=== PATIENT | male | born 1955 | race Caucasian/White ===

== ENCOUNTER 2019-06-13 10:55 | Emergency (ER) | payer MEDICARE ==
[~2019-06-13] VITALS: Ht 172.7 cm; Wt 116.6 kg
[~2019-06-13 10:55] MED LIST: ACETAMINOPHEN325 MG PO; ACETYLCYSTEINE PO; BAYER CHEWABLE81 MG PO; CLEOCIN HCL300 MG PO; COUMADIN10 MG PO; HYDROCODON-ACE1 EAC7 PO; LEVAQUIN250 MG PO; LISINOPRIL5 MG PO; LOVENOX SQ; LOVENOX120 MG/0.8 SQ; MIRALAX17 GM PO; MUCOMYST 2800 MG/4 M OR; NORVASC5 MG PO; PLAVIX75 MG PO; PRILOSEC10 MG PO; PRINIVIL20 MG PO; TESTOSTERON200 MG/ML IM; VANCOMYCIN H1 G/VIA1 PO; ZEBETA10 MG PO
[2019-06-13 10:57] VITALS: Ht 172.7 cm; Wt 116.6 kg
[2019-06-13] MEDS ORDERED: ELIQUIS5 MG (10:59)
[2019-06-13] MEDS ORDERED: ROCALTROL0.25 MCG (10:59)
[2019-06-13 11:26] LABS: BASOPHILS 0.2 % (0-2); EOSINOPHILS 2.7 % (0-7); HEMATOCRIT 44.4 % (42.0-54.0); HEMOGLOBIN 14.6 g/dL (13.5-17.5); IMMATURE GRANULOCYTES 1.1 % (0-5); LYMPHOCYTES 14.4 % (15-50); MCH 31.2 pg (26.0-34.0); MCHC 32.9 g/dL (31.0-37.0); MCV 94.9 fL (80.0-100.0); MEAN PLATELET VOLUME 10.3 fL (7.4-10.4); MONOCYTES 6.6 % (2-11); PLATELET COUNT 153 10x3/uL (130-400); RBC 4.68 10x6/uL (4.20-6.10); RDW 14.6 % (11.5-14.5); WBC 10.9 10x3/uL (4.8-10.8)
[2019-06-13 11:42] LABS: APTT 25.1 SECONDS (22.8-39.4); INR 1.17 (0.85-1.17); PROTIME 14.4 SECONDS (11.6-15.0)
[2019-06-13 11:52] LABS: ALBUMIN 3.3 g/dL (3.4-5.0); ALKALINE PHOSPHATASE 67 U/L (46-116); ALT (SGPT) 16 U/L (10-68); BILIRUBIN - TOTAL 0.58 mg/dL (0.2-1.3); CALC OSMOLALITY 293 mosm/kg (275-300); CALCIUM 11.4 mg/dL (8.5-10.1); CARBON DIOXIDE 21.3 mmol/L (21.0-32.0); CHLORIDE - SERUM 109 mmol/L (98-107); CREATININE - SERUM 6.7 mg/dL (0.6-1.3); GLUCOSE 93 mg/dL (74-106); POTASSIUM - SERUM 4.9 mmol/L (3.5-5.1); PROTEIN - SERUM 6.7 g/dL (6.4-8.2); SODIUM 140 mmol/L (136-145); UREA NITROGEN 54 mg/dL (7-18); eGFR NON AFRICAN AMERICAN 9 mL/min (90-120)
[2019-06-13 12:03] LABS: CKMB 2.1 U/L (0.0-3.6); CREATINE KINASE 102 UL (21-232); MAGNESIUM - SERUM 1.6 mg/dL (1.8-2.4); THYROID STIMULATING HORMONE 1.78 uIU/mL (0.36-3.74)
[2019-06-13 12:04] LABS: TROPONIN-I 0.075 ng/mL (0.000-0.060)
[2019-06-13 12:48] VITALS: BP 165/80
== END 2019-06-13 12:48 | disposition other institution (70) ==
LOC: D.ER 10:55
PROVIDERS: Family Medicine
DX: R29.810 Facial weakness (principal); R74.8 Abnormal levels of other serum enzymes; N18.9 Chronic kidney disease, unspecified; E03.9 Hypothyroidism, unspecified

== ENCOUNTER → 2019-07-29 15:19 | Outpatient (CLI) | payer MEDICARE ==
[2019-06-13 10:57] VITALS: BMI 41.1
[~2019-07-29 15:19] MED LIST changes: +CIALIS10 MG PO; +DEMADEX20 MG PO; +ELIQUIS5 MG; +FUROSEMIDE40 MG PO; +K-DUR20 MEQ PO; +LASIX40 MG PO; +LIPITOR40 MG PO; +METOPROLOL TART25 MG PO; +PROTONIX40 MG PO; +RENAGEL800 MG PO; +ROCALTROL0.25 MCG; +SODIUM BICARBO650 MG PO; +TESTOST CYP 200MG/ML IM
[2019-07-29 15:55] LABS: ANION GAP 16.1 mmol/L (8-16); CALCIUM 10.2 mg/dL (8.5-10.1); CARBON DIOXIDE 21.1 mmol/L (21.0-32.0); POTASSIUM - SERUM 5.2 mmol/L (3.5-5.1)
== END | disposition home or self-care (01) ==
LOC: D.LABREF 15:19
PROVIDERS: ATTEND Nurse Practitioner Adult Health
DX: I25.10 Atherosclerotic heart disease of native coronary artery without angina pectoris (principal); R60.0 Localized edema

== ENCOUNTER 2019-08-01 09:39 | Inpatient (IN) | payer MEDICARE ==
[~2019-08-01] VITALS: Ht 172.7 cm; Wt 120.5 kg
[~2019-08-01 09:39] MED LIST changes: -CIALIS10 MG PO; -DEMADEX20 MG PO; -FUROSEMIDE40 MG PO; -K-DUR20 MEQ PO; -LASIX40 MG PO; -LIPITOR40 MG PO; -METOPROLOL TART25 MG PO; -PROTONIX40 MG PO; -RENAGEL800 MG PO; -SODIUM BICARBO650 MG PO; -TESTOST CYP 200MG/ML IM
--- NOTE | 2019-08-01 10:12 | NUR ---
TRANSFER FROM ADMISSIONS BY W/Mamadou MORALES TO ROOM. AT BS. WILL CONT. PLAN OF CARE.
[2019-08-01 10:22] VITALS: BP 102/66; BMI 41.9
--- NOTE | 2019-08-01 10:56 | NUR ---
SPOKE WITH PT'S AND SHE STATES SHE IS GOING HOME TO GET PT'S HOME MEDS SO WE CAN DO MED REC.
[2019-08-01 11:03] VITALS: BP 102/66
[2019-08-01] MEDS ORDERED: PROTONIX40 MG PO (13:10)
[2019-08-01] MEDS ORDERED: PLAVIX75 MG PO (13:10)
[2019-08-01] MEDS ORDERED: SODIUM BICARBO650 MG PO (13:12)
[2019-08-01] MEDS ORDERED: LISINOPRIL5 MG PO (13:13)
[2019-08-01] MEDS ORDERED: BAYER CHEWABLE81 MG PO (13:14)
[2019-08-01] MEDS ORDERED: METOPROLOL TART25 MG PO (13:14)
[2019-08-01] MEDS ORDERED: LIPITOR40 MG PO (13:17)
[2019-08-01] MEDS ORDERED: CIALIS10 MG PO (13:18)
[2019-08-01] MEDS ORDERED: TESTOST CYP 200MG/ML IM (13:22)
[2019-08-01] MEDS ORDERED: FUROSEMIDE40 MG PO (13:24)
[2019-08-01] MEDS ORDERED: LASIX40 MG PO (13:25)
[2019-08-01] MEDS ORDERED: K-DUR20 MEQ PO (13:26)
--- NOTE | 2019-08-01 14:08 | NUR ---
LEFT FA 22G IV INSERTED X1 ATTEMPT.
--- NOTE | 2019-08-01 14:35 | NUR ---
PT WANTS TO BE DNR.
--- NOTE | 2019-08-01 14:56 | NUR ---
WAITING ON SOLE STAINER. UA COLLECTED AND TAKE TO LAB.
--- NOTE | 2019-08-01 14:56 | NUR ---
PT WANTS TO BE MADE DNR. CALLED AND SPOKE WITH SERAFIN JACOBS SHE STATES WHEN DR. BIRD ROUNDS TO HAVE HIM SIGN DNR FORM.
[2019-08-01 15:04] LABS: APPEARANCE CLEAR (CLEAR); BILIRUBIN NEGATIVE (NEGATIVE); COLOR YELLOW (YELLOW); GLUCOSE 50 mg/dL (NEGATIVE); KETONE NEGATIVE (NEGATIVE); NITRITE NEGATIVE (NEGATIVE); PROTEIN TRACE mg/dL (NEGATIVE); UROBILINOGEN NORMAL (NORMAL)
[2019-08-01 15:06] LABS: CREATININE - URINE 41.4 mg/dL (30-125); PRO/CRE RATIO URINE 1.3 mg/g; PROTEIN - URINE 53.6 mg/dL (0.0-11.9)
[2019-08-01 15:14] LABS: BASOPHILS 0.3 % (0-2); EOSINOPHILS 6.4 % (0-7); HEMATOCRIT 37.5 % (42.0-54.0); HEMOGLOBIN 12.1 g/dL (13.5-17.5); IMMATURE GRANULOCYTES 2.1 % (0-5); LYMPHOCYTES 17.7 % (15-50); MCH 30.2 pg (26.0-34.0); MCHC 32.3 g/dL (31.0-37.0); MCV 93.5 fL (80.0-100.0); MEAN PLATELET VOLUME 10.3 fL (7.4-10.4); MONOCYTES 8.6 % (2-11); NEUTROPHILS 64.9 % (40-80); PLATELET COUNT 148 10x3/uL (130-400); RBC 4.01 10x6/uL (4.20-6.10); RDW 14.3 % (11.5-14.5); WBC 8.6 10x3/uL (4.8-10.8)
[2019-08-01 15:27] LABS: ALBUMIN 2.8 g/dL (3.4-5.0); ANION GAP 16.9 mmol/L (8-16); BILIRUBIN - TOTAL 0.2 mg/dL (0.2-1.3); CALCIUM 9.9 mg/dL (8.5-10.1); CARBON DIOXIDE 19.4 mmol/L (21.0-32.0); CREATININE - SERUM 7.1 mg/dL (0.6-1.3); POTASSIUM - SERUM 5.3 mmol/L (3.5-5.1)
[2019-08-01 15:37] VITALS: BP 150/81
--- NOTE | 2019-08-01 16:03 | NUR ---
DNR FORM SIGNED BY DR. BIRD.
[2019-08-01 16:44] LABS: % SATURATION 20 % (15-55); IRON 56 ug/dl (35-150); TOTAL IRON BIND CAPACITY 272 ug/dl (260-445); UNSAT IRON BIND CAPACITY 216 ug/dl (150-375)
[2019-08-01 20:00] VITALS: BP 113/80
[2019-08-02] VITALS: BP 136/75
[2019-08-02 05:51] LABS: BASOPHILS 0.2 % (0-2); EOSINOPHILS 6.8 % (0-7); HEMATOCRIT 38.4 % (42.0-54.0); HEMOGLOBIN 12.3 g/dL (13.5-17.5); IMMATURE GRANULOCYTES 2.1 % (0-5); MCH 30.1 pg (26.0-34.0); MCV 93.9 fL (80.0-100.0); MEAN PLATELET VOLUME 11.5 fL (7.4-10.4); NEUTROPHILS 61.9 % (40-80); PLATELET COUNT 152 10x3/uL (130-400); RBC 4.09 10x6/uL (4.20-6.10); RDW 14.5 % (11.5-14.5)
[2019-08-02 06:36] LABS: % SATURATION 19 % (15-55); IRON 55 ug/dl (35-150); TOTAL IRON BIND CAPACITY 282 ug/dl (260-445); UNSAT IRON BIND CAPACITY 227 ug/dl (150-375)
[2019-08-02 06:40] LABS: ALBUMIN 2.8 g/dL (3.4-5.0); ANION GAP 18.5 mmol/L (8-16); BILIRUBIN - TOTAL 0.2 mg/dL (0.2-1.3); CALCIUM 10.4 mg/dL (8.5-10.1); CARBON DIOXIDE 18.6 mmol/L (21.0-32.0); CREATININE - SERUM 7.6 mg/dL (0.6-1.3); PHOSPHOROUS 6.3 mg/dL (2.5-4.9); POTASSIUM - SERUM 5.1 mmol/L (3.5-5.1)
--- NOTE | 2019-08-02 07:17 | NUR ---
REPORT RECEIVED. WILL CONTINUE WITH POC. PT CURRENTLY LYING SUPINE. CALL LIGHT W/I REACH. PT IS RESTING AT THIS TIME. NO S/S OF DISTRESS NOTED. RR EVEN AND UNLABORED ON RA. L.FOR PIV IS SALINE LOCKED. PT DENIES ANY NEEDS. WILL CTM.
[2019-08-02 08:00] VITALS: BP 117/77
--- NOTE | 2019-08-02 10:49 | NUR ---
I have reviewed this patient and I concur with the Shift Assessment completed by the Licensed Practical Nurse today this shift.
[2019-08-02 12:24] VITALS: BP 124/73
--- NOTE | 2019-08-02 13:38 | EC ---
PATIENT:FRIEDA ANNA JR DATE OF SERVICE: 08/01/19 SEX: M MEDICAL RECORD: [id number] DATE OF : [birth year] LOCATION:D.M2 D.212 AGE OF PATIENT: 64 ADMISSION DATE: 08/01/19 REFERRING PHYSICIAN: INTERPRETING PHYSICIAN: ANN DIETRICH MD ECHOCARDIOGRAM REPORT ECHO CHARGES 4 ECHO COMPLETE Date: 08/01/19 CLINICAL DIAGNOSIS: CHF ECHOCARDIOGRAPHIC MEASUREMENTS (adult normal given) AC root (d.<3.7cm) 2.8 cm LV Septum d (<1.2 cm> 1.4 cm Valve Excursion 1.9 cm LV Septum (systole) 1.9 cm Left Atria (s.<4.0cm> 3.7 cm LVPW d(<1.2cm) 1.4 cm RV (d.<2.3cm) 3.0 cm LVPW (sytole) 1.5 cm LV diastole(<5.6CM) 5.7 cm MV E-F(>70mm/sec) cm LV systole 4.3 cm LVOT Diameter 2.1 cm MV exc.(>10mm) cm Est.ejection fraction (50-75%) % DOPPLER: LVIT cm/sec A 115 cm/sec E 65 cm/sec LA cm/sec RVSP 18.1 mmHg LVOT 96 cm/sec AOP1/2T m/s Asc. Ao 135 cm/sec RVOT 69 cm/sec RA cm/sec PA 66 cm/sec AV Gradient Peak 7.3 mmHg AV Mean 3.9 mmHg AV Area 2.5 cm MV Gradient Peak 7.9 mmHg MV Mean 3.5 mmHg MV Area cm COMMENTS: Non Morse Intercept Technician: Mabel VERDERAYRAY MEDINA Manager Pest: 1 Dr. Dietrich TAPE# PACS Pericardial Effusion N DATE OF SERVICE: 08/01/2019 PROCEDURE: Echocardiogram. FINDINGS: 1. Left ventricular chamber size is within normal limits. Left ventricular systolic function is normal at 55% to 60%. 2. Left atrium is within normal limits. Right atrium and right ventricular chamber sizes are mildly dilated. 3. Valvular structures have normal structure and motion. ECHOCARDIOGRAM REPORT [id number] FRIEDA ANNA JR 4. Doppler interrogation reveals mild aortic insufficiency, trace mitral regurgitation, trace tricuspid regurgitation, no other valvular insufficiency or stenosis. Pulmonary systolic pressure is estimated at 18 mmHg. 5. No evidence of pericardial effusion or left ventricular thrombus. TRANSINT:[id number] Voice Confirmation ID: [id number] DOCUMENT ID: [id number] ANN DIETRICH MD at 1338 CC: [id number] DICTATION DATE: 08/01/19 1653 WAFER CUTTER: 08/02/19 0127 ADM IN [facility] [address] [place] [address]
--- NOTE | 2019-08-02 13:38 | CN ---
PATIENT NAME:FRIEDA ANNA JR MEDICAL RECORD: [id number] : 51 LOCATION:D. D.2129 ADMIT DATE: 08/01/19 ACCOUNT: [id number] CONSULTING PHYSICIAN: ANN ISAAC MD REFERRING PHYSICIAN: ENID BIRD MD DATE OF CONSULTATION: 08/01/2019 DIAGNOSES: 1. Edema. 2. Short of breath, dyspnea on exertion. 3. Coronary artery disease. 4. Previous percutaneous transluminal coronary angioplasty stent. 5. Hypertension. 6. Hyperlipidemia. 7. Renal insufficiency. 8. Insulin-dependent diabetes. HISTORY OF PRESENT ILLNESS: Mr. Anna presents with 1-week history of fluid retention, causing lower extremity edema and shortness of breath. No chest pain. No chest discomfort. He was found to have a creatinine of 7.0. He does have a history of coronary artery disease, PTCA stent in the past, but no anginal symptomatology at this time. PHYSICAL EXAMINATION: CONSTITUTIONAL/GENERAL APPEARANCE: Well nourished, well developed, appears stated age. EYES: Lids and conjunctivae noninjected. No discharge. No pallor. ENT: Lips within normal limit. No cyanosis. No pallor. NECK: Carotid arteries, bilateral normal upstroke. No bruits. No thrills. No jugular venous pressure or distention. CERVICAL LYMPH NODES: Nontender. Nonenlarged. THYROID: Not enlarged. No nodules. CARDIOVASCULAR: Precordial exam, nondisplaced. No heaves or pericardial thrills. Rate and rhythm, regular. Heart sounds, normal S1, normal S2. No S3, no gallop, no rub. Systolic murmur, not heard. Diastolic murmur, not heard. RESPIRATORY: Respiratory effort, unlabored. Normal curvature. No thoracic deformity. No chest wall tenderness. Percussion, resonant. Auscultation, clear. No wheezes, no rales, no rhonchi. ABDOMEN: Soft, nondistended, nontender. No abdominal pain, no vomiting and normal appetite. MUSCULOSKELETAL: No joint tenderness, normal gait, normal tone. SKIN: Warm and dry. OVERALL IMPRESSION: Lower extremity edema, fluid retention, shortness of breath, dyspnea on exertion, most likely all this is secondary to the renal insufficiency. We will get an echocardiogram. No other cardiac workup or treatment should be necessary. TRANSINT:[id number] Voice Confirmation ID: [id number] DOCUMENT ID: [id number] CONSULT REPORT [id number] FRIEDA ANNA JR, JEFFREY MD at 1338 CC: [id number] DICTATION DATE: 08/01/19 1214 WEBSITE PROJECT MANAGER: 08/01/19 1411 ADM IN [facility] [id number] [place] [address]
[2019-08-02 14:43] VITALS: Ht 172.7 cm; Wt 120.5 kg
--- NOTE | 2019-08-02 15:39 | NUR ---
PERFORMED POST VOID RESIDUAL SCAN AND RECORDERED 189ML TOTAL. NOTIFIED WHO STATED THAT WOULD BE OKAY. WILL CTM.
[2019-08-02 16:19] VITALS: BP 142/80
--- NOTE | 2019-08-02 19:23 | NUR ---
REPORT RECIEVED AND ROUNDING COMPLETE. PATIENT LAYING IN BED WATCHING TV. PATIENT HAS A LEFT FOREARM PIV THAT IS SALINE LOCKED WITH NO S/SX OF INFECTION OR INFILTRATION. PATIENT IS SHOWING NO S/SX OF DISTRESS AT THIS TIME. PATIENT STATES HE HAS NO NEEDS AT THIS TIME. CALL LIGHT WITHIN DANY AND BED IN LOWEST LOCKED POSITION.
[2019-08-02 20:15] VITALS: BP 136/82
[2019-08-03 00:02] VITALS: BP 149/79
[2019-08-03 04:00] VITALS: BP 133/72
--- NOTE | 2019-08-03 04:32 | NUR ---
I have reviewed this patient and I concur with the Shift Assessment completed by the Licensed Practical Nurse today this shift.
[2019-08-03 06:40] LABS: ANION GAP 18.4 mmol/L (8-16); CALCIUM 10.3 mg/dL (8.5-10.1); CARBON DIOXIDE 19.1 mmol/L (21.0-32.0); CREATININE - SERUM 7.7 mg/dL (0.6-1.3); POTASSIUM - SERUM 5.5 mmol/L (3.5-5.1); URIC ACID 9.2 mg/dL (2.6-7.2)
[2019-08-03 06:46] LABS: BASOPHILS 0.3 % (0-2); EOSINOPHILS 4.3 % (0-7); HEMATOCRIT 39.6 % (42.0-54.0); HEMOGLOBIN 12.8 g/dL (13.5-17.5); IMMATURE GRANULOCYTES 1.5 % (0-5); LYMPHOCYTES 10.5 % (15-50); MCH 30.2 pg (26.0-34.0); MCHC 32.3 g/dL (31.0-37.0); MCV 93.4 fL (80.0-100.0); MEAN PLATELET VOLUME 11.4 fL (7.4-10.4); MONOCYTES 10.9 % (2-11); NEUTROPHILS 72.5 % (40-80); PLATELET COUNT 147 10x3/uL (130-400); RBC 4.24 10x6/uL (4.20-6.10); RDW 14.6 % (11.5-14.5); WBC 11.1 10x3/uL (4.8-10.8)
--- NOTE | 2019-08-03 07:15 | NUR ---
PT LAYING IN BED. EYES CLSOED. CHEST RISING AND FALLING. ROOM AIR. BED LOW. CL IN REACH. WILL CONTINUE TO MONITOR.
[2019-08-03 08:45] VITALS: BP 140/82
[2019-08-03 11:10] LABS: HEPATITIS C ANTIBODY <0.1 S/CO RAT (0.0-0.9)
[2019-08-03 11:45] VITALS: BP 138/77
--- NOTE | 2019-08-03 12:15 | NUR ---
I have reviewed this patient and I concur with the Shift Assessment completed by the Licensed Practical Nurse today this shift.
[2019-08-03 13:10] LABS: PSA - % FREE 47.5 % (()); PSA - FREE 1.52 ng/mL; PSA - TOTAL 3.2 ng/mL (0.0-4.0)
[2019-08-03 15:10] LABS: SPE - A/G RATIO 1.1 (0.7-1.7); SPE - ALBUMIN 3.2 g/dL (2.9-4.4); SPE - ALPHA-1 GLOBULIN 0.2 g/dL (0.0-0.4); SPE - ALPHA-2 GLOBULIN 0.7 g/dL (0.4-1.0); SPE - BETA GLOBULIN 0.9 g/dL (0.7-1.3); SPE - M-SPIKE Not Observed g/dL (Not Observed)
--- NOTE | 2019-08-03 16:00 | NUR ---
PT WANTING TO KNOW ABOUT WHEN HE WILL GET DISCHARGE I STATED TO PT THAT IS UP TO DR. BIRD AND WHEN HE ROUNDS HE CAN DISCUSS THAT WIHTHIM. PT VERBALIZED UNDERSTANDING.
--- NOTE | 2019-08-03 16:10 | MORECARE ---
CASE MANAGEMENT DISCHARGE SUMMARY PATIENT: FRIEDA ANNA JR UNIT: [id number] ADM DATE: 08/01/19 AGE: 64 : 53 SEX: M ROOM/BED: D.2129 AUTHOR: DENIS VELASCO PHYSICIAN: REFERRING PHYSICIAN: ENID BIRD MD DATE OF SERVICE: 08/03/19 Discharge Plan Patient Name: FRIEDA ANNA Facility: [facility]:[place] : 1955 Planned Disposition: Home Health Service Anticipated Discharge Date: Discharge Date: Expected LOS: Initial Reviewer: [email or web address] Initial Review Date: 08/03/2019 Generated: 08/03/19 5:10 pm Patient Name: FRIEDA ANNA Page [id number] at 1610 All edits/amendments must be made on the electronic document DICTATION DATE: 08/03/19 1610 INSTRUMENTAL MUSIC TEACHER: PHILOMENA 08/03/19 1610 RPT#: [id number] DC DATE: STATUS: ADM IN [facility] [address] [place] [address] END OF REPORT
--- NOTE | 2019-08-03 16:18 | MORECARE ---
CASE MANAGEMENT DISCHARGE SUMMARY PATIENT: FRIEDA ANNA JR UNIT: [id number] ADM DATE: 08/01/19 AGE: 64 : 53 SEX: M ROOM/BED: D.6983 AUTHOR: DENIS VELASCO PHYSICIAN: REFERRING PHYSICIAN: ENID BIRD MD DATE OF SERVICE: 08/03/19 Discharge Plan Patient Name: FRIEDA ANNA Facility: [facility]:[place] : 1955 Planned Disposition: Home Health Service Anticipated Discharge Date: Discharge Date: Expected LOS: Initial Reviewer: [email or web address] Initial Review Date: 08/03/2019 Generated: 08/03/19 5:18 pm Comments DCP- Discharge Planning Updated by [email or web address]: Kassandra Lea on 08/03/19 3:[address] Patient Name: FRIEDA ANNA Admission Status: Elective Accout number: [id number] Admission Date: 08-01-2019 : 1955 Admission Diagnosis: Attending: ENID BIRD Current LOS: 2 Anticipated DC Date: Planned Disposition: Home Health Service Primary Insurance: MEDICARE A & B Discharge Planning Comments: CM MET WITH PATIENT ABOUT DC PLANNING/NEEDS. STATES PLANS TO DC TO HOME AND RESUME HH WITH [facility]. NATHALY WILL POOL TECHNICIAN AT TIME OF DISCHARGE. HE STATES HE DOES NOT WANT DIALYSIS, SAID HE HAS BEEN OFF OF IT FOR 5 YEARS AND IS NOT GOING BACK. CM WILL FOLLOW AND ASSIST. Netezza Developer: Kassandra Lea Last DP export: 08/03/19 3:10 p Patient Name: FRIEDA ANNA Page [phone] at 1618 All edits/amendments must be made on the electronic document DICTATION DATE: 08/03/191617 MANAGER PORT: PHILOMENA 08/03/191617 RPT#: [id number] DC DATE: STATUS: ADM IN [facility] [address] [place] [address] END OF REPORT
[2019-08-03 16:37] VITALS: BP 109/75
--- NOTE | 2019-08-03 19:00 | NUR ---
REPORT RECEIVED, WILL CONTINUE POC. PATIENT A/OX4, UP AD LOUISE. NO S/S OF DISTRESS OBSERVED, RR EVEN AND UNLABORED ON ROOM AIR. IV TO LT FA SL, PATENT, DRSG C/D/I. PATIENT DENIES NEEDS AT THIS TIME. CL IN REACH, BED LOCKED AND LOWERED. WILL CTM.
[2019-08-03 20:00] VITALS: BP 114/81
[2019-08-04] VITALS: BP 120/68
--- NOTE | 2019-08-04 01:44 | NUR ---
I have reviewed this patient and I concur with the Shift Assessment completed by the Licensed Practical Nurse today this shift.
[2019-08-04 05:13] LABS: BASOPHILS 0.4 % (0-2); EOSINOPHILS 4.5 % (0-7); HEMATOCRIT 38.9 % (42.0-54.0); HEMOGLOBIN 12.8 g/dL (13.5-17.5); IMMATURE GRANULOCYTES 1.2 % (0-5); LYMPHOCYTES 16.2 % (15-50); MCH 30.4 pg (26.0-34.0); MCHC 32.9 g/dL (31.0-37.0); MCV 92.4 fL (80.0-100.0); MEAN PLATELET VOLUME 10.9 fL (7.4-10.4); MONOCYTES 9.3 % (2-11); NEUTROPHILS 68.4 % (40-80); PLATELET COUNT 152 10x3/uL (130-400); RBC 4.21 10x6/uL (4.20-6.10); RDW 14.4 % (11.5-14.5); WBC 10.8 10x3/uL (4.8-10.8)
[2019-08-04 05:43] LABS: ANION GAP 17.1 mmol/L (8-16); CALCIUM 9.9 mg/dL (8.5-10.1); CARBON DIOXIDE 21.5 mmol/L (21.0-32.0)
[2019-08-04 05:53] LABS: POTASSIUM - SERUM 4.6 mmol/L (3.5-5.1)
--- NOTE | 2019-08-04 06:06 | NUR ---
ASSISTED PATIENT TO BATHROOM TO HAVE BM, PATIENT SAID IT APPIAH WHEN HE URINATES.
--- NOTE | 2019-08-04 07:18 | NUR ---
REPORT RECEIVED. WILL CONTINUE WITH POC. PT CURRENTLY LYING SEMI FOWLERS. CALL LIGHT W/I REACH. PT IS AAO AND UP AD LOUISE. RR EVEN AND UNLABORED ON RA. L.FOR PIV IS SALINE LOCKED. PT DENIES ANY NEEDS AT THIS TIME. NO S/S OF DISTRESS NOTED. WILL CTM.
[2019-08-04 08:34] VITALS: BP 131/81
[2019-08-04 12:30] VITALS: BP 133/81
[2019-08-04] MEDS ORDERED: DEMADEX20 MG PO (13:10)
[2019-08-04] MEDS ORDERED: RENAGEL800 MG PO (13:10)
--- NOTE | 2019-08-04 15:16 | NUR ---
PT DISCHARGED HOME VIA WHEELCHAIR WITH FAMILY. TELEMETRY REMOVED AND RETURNED. PT SIGNED PROPER DISCHARGE INSTRUCTIONS AND REMOVED ALL VALUALBLES FROM THE ROOM. PIV REMOVED WITH CATHETER TIP FULLY INTACT.
--- NOTE | 2019-08-04 16:55 | MORECARE ---
CASE MANAGEMENT DISCHARGE SUMMARY PATIENT: FRIEDA ANNA JR UNIT: [id number] ADM DATE: 08/01/19 AGE: 64 : 53 SEX: M ROOM/BED: D.8375 AUTHOR: DENIS VELASCO PHYSICIAN: REFERRING PHYSICIAN: ENID BIRD MD DATE OF SERVICE: 08/04/19 Discharge Plan Patient Name: FRIEDA ANNA Facility: [facility]:[place] : 1955 Planned Disposition: Home Health Service Anticipated Discharge Date: Discharge Date: 08/04/2019 Expected LOS: Initial Reviewer: [email or web address] Initial Review Date: 08/03/2019 Generated: 08/04/19 5:55 pm DCP- Discharge Planning Updated by [email or web address]: Kassandra Lea on 08/03/19 3:[address] Patient Name: FRIEDA ANNA Admission Status: Elective Accout number: [id number] Admission Date: 08-01-2019 : 1955 Admission Diagnosis: Attending: ENID BIRD Current LOS: 2 Anticipated DC Date: Planned Disposition: Home Health Service Primary Insurance: MEDICARE A & B Discharge Planning Comments: CM MET WITH PATIENT ABOUT DC PLANNING/NEEDS. STATES PLANS TO DC TO HOME AND RESUME HH WITH [facility]. NATHALY WILL CONTACT LENS MANUFACTURER AT TIME OF DISCHARGE. HE STATES HE DOES NOT WANT DIALYSIS, SAID HE HAS BEEN OFF OF IT FOR 5 YEARS AND IS NOT GOING BACK. CM WILL FOLLOW AND ASSIST. Food Cooking Machine Operator: Kassandra Lea Coverage Notice Reviewer: [email or web address] - Kassandra Lea Notice Issued Date-Time: 08/04/2019 14:44 Notice Type: IM Discharge Notice Notice Delivered To: Patient Relationship to Patient: Web Marketing Manager Name: Delivery Method: HAND - Hand Delivered Marjorie Days: Prior Verbal Notification: Recipient Understood Notice: Yes Recipient Signature: Yes Med Rec Note Co-signed by Attending: Coverage Notice Comment: Last DP export: 08/03/19 3:18 p Patient Name: FRIEDA ANNA Page [phone] at 1658 All edits/amendments must be made on the electronic document DICTATION DATE: 08/04/191654 CELL TESTER: PHILOMENA 08/04/191654 RPT#: [id number] DC DATE:08/04/19 STATUS: DIS IN [facility] [address] [place] [address] END OF REPORT
== END 2019-08-04 15:16 | disposition home health service (06) | DRG 291 ==
LOC: D.M2 09:39 → D.SDCHOLD 09:39 → D.M2 09:56
PROVIDERS: Internal Medicine; ADMIT Internal Medicine Nephrology; ATTEND Internal Medicine Nephrology
DX: I13.2 Hypertensive heart and chronic kidney disease with heart failure and with stage 5 chronic kidney disease, or end stage renal disease (principal); I50.43 Acute on chronic combined systolic (congestive) and diastolic (congestive) heart failure; F17.213 Nicotine dependence, cigarettes, with withdrawal; E87.2 Acidosis; N17.9 Acute kidney failure, unspecified; N18.5 Chronic kidney disease, stage 5; E11.22 Type 2 diabetes mellitus with diabetic chronic kidney disease; D64.9 Anemia, unspecified; E87.5 Hyperkalemia; I25.10 Atherosclerotic heart disease of native coronary artery without angina pectoris; E78.5 Hyperlipidemia, unspecified; Z66 Do not resuscitate; Z86.73 Personal history of transient ischemic attack (TIA), and cerebral infarction without residual deficits

== ENCOUNTER → 2019-08-29 16:59 | Outpatient (CLI) | payer MEDICARE ==
[2019-08-02 14:43] VITALS: BMI 40.3
[~2019-08-29 16:59] MED LIST changes: +CIALIS10 MG PO; +CIALIS2.5 MG PO; +CIPRO250 MG PO; +DEMADEX20 MG PO; +FUROSEMIDE40 MG PO; +K-DUR20 MEQ PO; +LASIX40 MG PO; +LIPITOR40 MG PO; +METOPROLOL TART25 MG PO; +PROTONIX40 MG PO; +RENAGEL800 MG PO; +SODIUM BICARBO650 MG PO; +TESTOST CYP 200MG/ML IM; +TUMS PO; +VIBRAMYCIN 100100 MG PO
== END | disposition home or self-care (01) ==
LOC: D.LABREF 16:59
PROVIDERS: ATTEND Urology
DX: R31.9 Hematuria, unspecified (principal)

== ENCOUNTER 2019-09-06 05:30 | Day surgery (SDC) | payer MEDICARE ==
[2019-09-05 14:16] LABS: BASOPHILS 0.2 % (0-2); EOSINOPHILS 3.7 % (0-7); HEMATOCRIT 41.1 % (42.0-54.0); HEMOGLOBIN 12.7 g/dL (13.5-17.5); IMMATURE GRANULOCYTES 0.6 % (0-5); LYMPHOCYTES 11.4 % (15-50); MCH 29.6 pg (26.0-34.0); MCHC 30.9 g/dL (31.0-37.0); MCV 95.8 fL (80.0-100.0); MONOCYTES 7.8 % (2-11); NEUTROPHILS 76.3 % (40-80); PLATELET COUNT 179 10x3/uL (130-400); RBC 4.29 10x6/uL (4.20-6.10); RDW 13.7 % (11.5-14.5)
[2019-09-05 14:32] LABS: ALBUMIN 3.2 g/dL (3.4-5.0); ANION GAP 11.8 mmol/L (8-16); BILIRUBIN - TOTAL 0.34 mg/dL (0.2-1.3); CALCIUM 10.5 mg/dL (8.5-10.1); CARBON DIOXIDE 24.6 mmol/L (21.0-32.0); CREATININE - SERUM 7.3 mg/dL (0.6-1.3); POTASSIUM - SERUM 4.4 mmol/L (3.5-5.1); PROTEIN - SERUM 6.5 g/dL (6.4-8.2)
[2019-09-05 14:35] LABS: INR 1.09 (0.85-1.17); PROTIME 13.6 SECONDS (11.6-15.0)
[~2019-09-06] VITALS: Ht 175.3 cm; Wt 120.2 kg
[~2019-09-06 05:30] MED LIST changes: -CIALIS2.5 MG PO; -CIPRO250 MG PO; -TUMS PO; -VIBRAMYCIN 100100 MG PO
[2019-09-06 06:35] VITALS: BP 150/86; Ht 175.3 cm; Wt 120.2 kg
--- NOTE | 2019-09-06 08:47 | OP ---
PATIENT NAME: FRIEDA ANNA JR MEDICAL RECORD: [id number] :51 LOCATION:D.OPS ADMISSION DATE: SURGEON: VINCENT PACHECO MD DATE OF OPERATION: 09/06/2019 SURGEON: Vincent Pacheco MD ANESTHESIA: TIVA by Francis Xavier CRNA. DIAGNOSES: Elevated PSA of 3.2 on 08/02/2019, bladder outlet obstruction. PROCEDURE: Cystoscopy, transrectal ultrasound, and prostate biopsy. FINDINGS: On cystoscopy, bilateral lateral lobe hyperplasia with no median lobe. Single ureteral orifices bilaterally with no bladder tumors. SPECIMENS: Prostate biopsy cores. BLOOD LOSS: Minimal. CLINICAL HISTORY: This is a 64-year-old male with renal failure, who should be having dialysis in the near future. He has elevated PSA of 3.2 on 08/02/2019 with a free PSA of 47.5%. He had a CT scan of the abdomen and pelvis, which showed normal liver, bilateral renal atrophy with cysts and an enlarged prostate. He has significant voiding symptoms including nocturia times 6-7 with hesitancy and a weak flow. He had a postvoid residual of 172 mL. He comes today for cystoscopy as well as a prostate biopsy. HE IS ALLERGIC TO SULFA AND ATIVAN. He was given Ancef keyboard action assembler to the OR. DESCRIPTION OF PROCEDURE: The patient was given IV sedation. He was then placed into lithotomy position and prepped and draped. A 17-Macedonian cystoscope with 30-degree lens was used for visualization. There are no penile urethral strictures. The lateral lobes of the prostate are obstructive. Other findings are as listed above. The bladder was then emptied through the scope and then the scope was removed entirely. We then introduced the transrectal ultrasound probe and took prostate size measurements. Prostate size was estimated at 51 grams. Sextant biopsies were then obtained with at least 3 cores from each sextant. Once all the specimens were obtained, the procedure was terminated. I will see the patient in followup next week to review the pathology results with him. TRANSINT:[id number] Voice Confirmation ID: [id number] DOCUMENT ID: [id number] VINCENT PACHECO MD at 0847 CC: [id number] DICTATION DATE: 09/06/19815 RADIOLOGIST DIAGNOSTIC: 09/06/19840 REG [facility] [address] [facility] [place] [address]
--- NOTE | 2019-09-06 09:14 | NUR ---
0900 SERVED FULL LIQUID DIET. PT COMPLAINS OF RIGHT ARM PAIN. STATES HAVING DIFFICULTY HOLDING SPOON, RIGHT ARM & HAND WRAPPED IN WARM BLANKLET. Eboni GARCIA R.N. 2190 SPOKE WITH UNIT SUPERVISER RELATED TO ARM ISSUE. PT & ADVISED THEY WILL NEED TO CONTACT PRIMARY CARE PHYSICIAM RELATED TO ARM ISSUE. STATES IT IS SOME BETTER AFTER BEING WRAPPED IN WARM BLANKET. Eboni GARCIA R.N.
--- NOTE | 2019-09-06 10:06 | NUR ---
0955 DRESSED, AWAKE & ALERT SITTING UP IN CHAIR @ BEDSIDE. D/C INFORMATION REVIEWED INCLUDING: MED REC, RTC APPT., [facility] D/C INSTRUCTIONS, POST CYSTOSCOPY & PROSTATE BIOPSY D/C INSTRUCTIONS. PT & VOICED UNDERSTANDING. PT STATES RIGHT HAND IS NOT HURTING @ THIS TIME. REMINDED [facility] IS AVAILABLE AN OPTION. STATES DR. LANG IS CALLING IN MEDICATIONS. TO PRIVATE CAR PER WHEELCHAIR BY STAFF. HOME WITH MRS. ANNA. Eboni GARCIA R.N.
== END 2019-09-06 09:55 | disposition home or self-care (01) ==
LOC: D.OPS 05:30 → D.PAN 07:30 → D.OPS 07:30 → D.PAN 10:30 → D.OPS 10:45
PROVIDERS: Anesthesiology; ATTEND Urology
DX: N32.0 Bladder-neck obstruction (principal); R97.20 Elevated prostate specific antigen [PSA]

== ENCOUNTER 2019-09-14 08:38 | Day surgery (SDC) | payer MEDICARE ==
[~2019-09-14] VITALS: Ht 175.3 cm; Wt 122.1 kg
[2019-09-14 09:13] LABS: BASOPHILS 0.2 % (0-2); HEMATOCRIT 40.3 % (42.0-54.0); HEMOGLOBIN 12.4 g/dL (13.5-17.5); IMMATURE GRANULOCYTES 0.9 % (0-5); LYMPHOCYTES 16.3 % (15-50); MCH 29.6 pg (26.0-34.0); MCHC 30.8 g/dL (31.0-37.0); MCV 96.2 fL (80.0-100.0); MEAN PLATELET VOLUME 10.7 fL (7.4-10.4); MONOCYTES 11.3 % (2-11); NEUTROPHILS 67.3 % (40-80); PLATELET COUNT 185 10x3/uL (130-400); RBC 4.19 10x6/uL (4.20-6.10); RDW 13.8 % (11.5-14.5)
[2019-09-14] MEDS ORDERED: TUMS PO (09:29)
[2019-09-14 09:31] LABS: APTT 24.7 SECONDS (22.8-39.4); INR 1.05 (0.85-1.17); PROTIME 13.2 SECONDS (11.6-15.0)
[2019-09-14 09:40] VITALS: BP 160/88; Ht 175.3 cm; Wt 122.1 kg
[2019-09-14 09:41] LABS: ANION GAP 15.1 mmol/L (8-16); CALCIUM 10.7 mg/dL (8.5-10.1); CARBON DIOXIDE 23.6 mmol/L (21.0-32.0); CREATININE - SERUM 7.4 mg/dL (0.6-1.3); POTASSIUM - SERUM 4.7 mmol/L (3.5-5.1)
--- NOTE | 2019-09-14 16:48 | NUR ---
RECIEVED REPORT FROM NETO AT 1600. PT AWAKE BUT STATED HE WAS TIRED. STATED HE HADNT SLEPT IN A FEW DAYS. PT AWAKENS QUICKLY WHEN SPOKEN TO AND ABLE TO STAY AWAKE. PT HAS A HISTORY OF SLEEP APNEA BUT WONT WEAR HIS CPAP AT HOME, ENCOURAGED PT AND TO SIT HIM UP IN [place]. INSTRUCTIONS GIVEN TO PT AND BY NETO LOUIS. 1630 PT TAKING FLUIDS AND IV REMOVED. ASSISTED PT WITH GETTING DRESSED AND WAS ABLE TO STAND UP. BED NOTED WET FROM URINE. DRESSING TO PERITONEAL CATH CDI. DENIES PAIN.
[2019-09-15] MEDS ORDERED: CIPRO250 MG PO (15:57)
--- NOTE | 2019-09-16 12:02 | OP ---
PATIENT NAME: FRIEDA ANNA JR MEDICAL RECORD: [id number] :51 LOCATION:D.[facility] ADMISSION DATE: SURGEON: VINCENT WILSON MD DATE OF OPERATION: 09/14/2019 PREOPERATIVE DIAGNOSIS: End-stage renal disease without access for hemodialysis. POSTOPERATIVE DIAGNOSIS: End-stage renal disease without access for hemodialysis. PROCEDURE: Laparoscopic placement of left-sided swan neck curl cath. SURGEON: Vincent Wilson MD MERCHANDISE SUPPORT ASSOCIATE: None. BLOOD LOSS: 100 cc. ANESTHESIA: General. COMPLICATIONS: None. The risks, possible complications and alternatives to the procedure were explained to the patient. He elects to proceed. OPERATIVE COURSE: The patient was conveyed to the operating room electively on 09/14/2019. General anesthesia was induced by the anesthesia staff. The abdomen was sterilely prepped and draped. A small skin yohana was accomplished in the left upper quadrant. A Veress needle was inserted through the skin yohana into the peritoneal cavity. CO2 insufflation was begun. Once a sufficient pneumoperitoneum had been achieved, a 5-mm trocar was inserted through an incision in the left lower quadrant. Under direct internal vision utilizing a television camera, an incision was accomplished cephalad and medial to this initial incision and I advanced a 12-mm trocar in an oblique fashion down toward the pelvis. Through this 12-mm trocar, I advanced a swan neck curl cath. The 12-mm trocar was then removed. I ensured that the distal cuff was just outside of the peritoneal cavity. I then tunneled the other end of the catheter out through the 5-mm trocar incision. I ensured that the swan neck curl cath was not twisted. The cephalad incision was closed in 2 layers with interrupted 3-0 Vicryls for the deep dermis as well as interrupted 3-0 Vicryls for the skin and then Dermabond. There was some bleeding from the catheter exit site and this was difficult to control, so I packed some fibrillar up along the catheter tract and it became hemostatic. The hub device was attached as well as the locking device. Sterile dressings were applied. The patient was then extubated and conveyed to post-anesthesia care unit where OPERATIVE REPORT [id number] FRIEDA ANNA JR he was in stable condition. He will be dismissed home on [place] as well as [place]. I will see him on a p.r.n. basis. There is no need for him to follow up with me in the office unless he develops a complication related to this operative procedure. TRANSINT:[id number] Voice Confirmation ID: [id number] DOCUMENT ID: [id number] VINCENT WILSON MD at 1202 CC: AMINA PATRICK MD [id number] DICTATION DATE: 09/14/19 1515 ENVIRONMENTAL ECONOMIST: 09/14/19 2229 [facility] 09/14/[address] [address]
== END 2019-09-14 15:35 | disposition home or self-care (01) ==
LOC: D.OPS 08:38 → D.PAN 10:50 → D.OPS 11:00 → D.PAN 12:00 → D.OPS 15:35
PROVIDERS: Anesthesiology; ATTEND Surgery
DX: N18.6 End stage renal disease (principal)

== ENCOUNTER 2019-09-15 09:51 | Emergency (ER) | payer MEDICARE ==
[~2019-09-15] VITALS: Ht 175.3 cm; Wt 128.2 kg
[~2019-09-15 09:51] MED LIST changes: +TUMS PO
[2019-09-15 09:57] VITALS: Ht 175.3 cm; Wt 128.2 kg
[2019-09-15 10:42] LABS: BASOPHILS 0.1 % (0-2); EOSINOPHILS 0.1 % (0-7); HEMATOCRIT 38.4 % (42.0-54.0); HEMOGLOBIN 12.1 g/dL (13.5-17.5); IMMATURE GRANULOCYTES 0.5 % (0-5); LYMPHOCYTES 6.2 % (15-50); MCH 29.8 pg (26.0-34.0); MCHC 31.5 g/dL (31.0-37.0); MCV 94.6 fL (80.0-100.0); MEAN PLATELET VOLUME 10.2 fL (7.4-10.4); MONOCYTES 7.7 % (2-11); NEUTROPHILS 85.4 % (40-80); PLATELET COUNT 208 10x3/uL (130-400); RBC 4.06 10x6/uL (4.20-6.10); RDW 13.7 % (11.5-14.5)
[2019-09-15 10:46] LABS: WBC 14.4 10x3/uL (4.8-10.8)
[2019-09-15 10:52] LABS: ANION GAP 16.1 mmol/L (8-16); CALCIUM 10.7 mg/dL (8.5-10.1); CARBON DIOXIDE 20.7 mmol/L (21.0-32.0); CREATININE - SERUM 7.4 mg/dL (0.6-1.3); POTASSIUM - SERUM 4.8 mmol/L (3.5-5.1)
[2019-09-15 10:57] LABS: ALBUMIN 3.2 g/dL (3.4-5.0); BILIRUBIN - TOTAL 0.28 mg/dL (0.2-1.3); PROTEIN - SERUM 6.9 g/dL (6.4-8.2)
[2019-09-15 10:59] LABS: APPEARANCE CLEAR (CLEAR); BILIRUBIN NEGATIVE (NEGATIVE); COLOR STRAW (YELLOW); GLUCOSE 250 mg/dL (NEGATIVE); KETONE NEGATIVE (NEGATIVE); NITRITE NEGATIVE (NEGATIVE); PROTEIN 1+ mg/dL (NEGATIVE); UROBILINOGEN NORMAL (NORMAL)
[2019-09-15 11:07] LABS: BACTERIA FEW /hpf (NEGATIVE); RED CELLS - URINE OCC /hpf (0-5); WHITE CELLS - URINE 0-5 /hpf (NEGATIVE)
[2019-09-15] MEDS ORDERED: CIPRO250 MG PO (15:57)
[2019-09-15 17:14] VITALS: BP 153/77
== END 2019-09-15 16:50 | disposition home or self-care (01) ==
LOC: D.ER 09:51
PROVIDERS: Emergency Medicine
DX: R33.9 Retention of urine, unspecified (principal); N18.9 Chronic kidney disease, unspecified

== ENCOUNTER 2019-09-26 14:04 | Emergency (ER) | payer MEDICARE ==
[~2019-09-26] VITALS: Ht 175.3 cm; Wt 120.5 kg
[~2019-09-26 14:04] MED LIST changes: +CIPRO250 MG PO
[2019-09-26 14:08] VITALS: Ht 175.3 cm; Wt 120.5 kg
[2019-09-26 15:17] LABS: BASOPHILS 0.2 % (0-2); EOSINOPHILS 4.6 % (0-7); HEMATOCRIT 37.3 % (42.0-54.0); HEMOGLOBIN 11.6 g/dL (13.5-17.5); LYMPHOCYTES 11.5 % (15-50); MCH 29.1 pg (26.0-34.0); MCHC 31.1 g/dL (31.0-37.0); MCV 93.5 fL (80.0-100.0); MEAN PLATELET VOLUME 10.7 fL (7.4-10.4); MONOCYTES 11.5 % (2-11); NEUTROPHILS 71.2 % (40-80); PLATELET COUNT 203 10x3/uL (130-400); RBC 3.99 10x6/uL (4.20-6.10); RDW 13.4 % (11.5-14.5); WBC 9.5 10x3/uL (4.8-10.8)
[2019-09-26 15:38] LABS: ANION GAP 16.1 mmol/L (8-16); CALCIUM 10.7 mg/dL (8.5-10.1); CARBON DIOXIDE 22.6 mmol/L (21.0-32.0); POTASSIUM - SERUM 3.7 mmol/L (3.5-5.1)
[2019-09-26 15:45] LABS: ALBUMIN 2.8 g/dL (3.4-5.0); BILIRUBIN - TOTAL 0.29 mg/dL (0.2-1.3); PROTEIN - SERUM 6.7 g/dL (6.4-8.2)
[2019-09-26] MEDS ORDERED: VIBRAMYCIN 100100 MG PO (16:50)
[2019-09-26 17:18] VITALS: BP 170/91
[2019-10-02 17:08] LABS: AEROBE ID Final report (()); RESULT 1 Actinomyces species (())
== END 2019-09-26 17:15 | disposition home or self-care (01) ==
LOC: D.ER 14:04
PROVIDERS: Family Medicine
DX: T82.898A Other specified complication of vascular prosthetic devices, implants and grafts, initial encounter (principal); L03.311 Cellulitis of abdominal wall; N19 Unspecified kidney failure; E03.9 Hypothyroidism, unspecified; Z86.73 Personal history of transient ischemic attack (TIA), and cerebral infarction without residual deficits; I13.0 Hypertensive heart and chronic kidney disease with heart failure and stage 1 through stage 4 chronic kidney disease, or unspecified chronic kidney disease; N18.9 Chronic kidney disease, unspecified; I50.9 Heart failure, unspecified; Z72.0 Tobacco use

== ENCOUNTER 2019-09-29 08:05 | Inpatient (IN) | payer MEDICARE ==
[~2019-09-29] VITALS: Ht 175.3 cm; Wt 129.4 kg
[~2019-09-29 08:05] MED LIST changes: +VIBRAMYCIN 100100 MG PO
[2019-09-29] MEDS ORDERED: CIALIS2.5 MG PO (08:26)
[2019-09-29] MEDS ORDERED: PLAVIX75 MG PO (08:27)
[2019-09-29 08:33] VITALS: BP 146/86; BMI 40.7
[2019-09-29 08:53] LABS: BASOPHILS 0.2 % (0-2); EOSINOPHILS 5.8 % (0-7); IMMATURE GRANULOCYTES 1.1 % (0-5); LYMPHOCYTES 13.9 % (15-50); MCH 28.6 pg (26.0-34.0); MCHC 30.6 g/dL (31.0-37.0); MCV 93.8 fL (80.0-100.0); MEAN PLATELET VOLUME 10.9 fL (7.4-10.4); MONOCYTES 8.4 % (2-11); NEUTROPHILS 70.6 % (40-80); PLATELET COUNT 205 10x3/uL (130-400); RBC 3.84 10x6/uL (4.20-6.10); RDW 13.4 % (11.5-14.5); WBC 8.9 10x3/uL (4.8-10.8)
[2019-09-29 08:59] LABS: INR 1.08 (0.85-1.17); PROTIME 13.5 SECONDS (11.6-15.0)
[2019-09-29 09:02] LABS: ANION GAP 16.1 mmol/L (8-16); CALCIUM 10.7 mg/dL (8.5-10.1); CARBON DIOXIDE 19.6 mmol/L (21.0-32.0); CREATININE - SERUM 7.1 mg/dL (0.6-1.3); POTASSIUM - SERUM 4.7 mmol/L (3.5-5.1)
--- NOTE | 2019-09-29 10:50 | NUR ---
RED RASH ON BILATERAL INNER THIGHS NOTED BEFORE PROCEDURE START.
--- NOTE | 2019-09-29 11:49 | OP ---
PATIENT NAME: FRIEDA ANNA JR MEDICAL RECORD: [id number] :51 LOCATION:D.[facility] ADMISSION DATE: SURGEON: FREDDY PACHECO MD DATE OF OPERATION: 09/29/2019 SURGEON: Freddy Pacheco MD ANESTHESIA: TIVA by Scott Deleon CRNA. DIAGNOSIS: Urinary retention due to obstructive BPH. PROCEDURE: UroLift times 4. FINDINGS: Obstructive bilateral lateral lobes of the prostate. Vascular prostatic urethra. Single ureteral orifices bilaterally. No bladder tumors. ESTIMATED BLOOD LOSS: None. CLINICAL HISTORY: This is a 64-year-old male with end-stage renal failure. He is in urinary retention and he has an indwelling Ramos catheter. His serum PSA was found to be elevated at 3.2. He had a transrectal ultrasound, which showed a 51 gram prostate. Cystoscopy showed bilateral lateral lobe hyperplasia with no bladder tumors. He has a vascular prostatic urethra. He has been having episodes of gross hematuria. Urine cultures have not shown any growth. He has a benign pathology on his prostate biopsy. His IPSS score is 25. Quality of life score is 4. He comes today to have the UroLift procedure done. He was given Ancef micromatic hone operator to the OR. HE HAS AN ALLERGY TO SULFA AND LORAZEPAM. DESCRIPTION OF PROCEDURE: The patient was given IV sedation initially. He had a lot of issues with restless legs and therefore he had to be given an LMA and given general. He was then prepped and draped. The UroLift scope was introduced. Findings are as outlined above. Two units were placed at the level of the bladder neck. They were placed 1.5 cm distal to the bladder neck at the anterolateral sulcus. One unit was placed on each side. We then placed 2 more units of the verumontanum level. They were placed at the anterolateral sulcus with 1 unit being placed on each side. He then had a nice wide open prostatic urethra. The prostate being very vasculature, I decided to leave an indwelling Ramos catheter. The scope was removed. A 16-Faroese Ramos catheter was inserted into the bladder. The balloon was inflated with 10 cc of sterile water. This was put to bag drainage. The patient will come back early next week to have the Ramos catheter removed for a voiding trial. TRANSINT:[id number] Voice Confirmation ID: [id number] DOCUMENT ID: [id number] FREDDY PACHECO MD at 1149 CC: [id number] DICTATION DATE: 09/29/19 1112 HIV COUNSELOR: 09/29/19 1141 REG [facility] [address] [place] [id number]
--- NOTE | 2019-09-29 13:52 | NUR ---
1230 DR ORTEGA NOTIFIED OF PT IN OPS AND THAT SURGERY IS COMPLETED. CHARITO FROM NEPHROLOGY CAME TO SEE PATIENT AND WILL WRITE ORDERS FOR ADMISSION AND CARE. 1325 PT UP TO BEDSIDE COMMODE. UNABLE TO HAVE BM BUT PASSED FLATUS. 1338 REPORT CALLED TO DANNIELLE DURON RN.
--- NOTE | 2019-09-29 14:08 | NUR ---
1405 IV TUBING CHANGED. IV FLUIDS REMOVED. INT INTACT AND FLUSHES WITHOUT DIFFICULTY. 1405 PT READY FOR TRANSFER TO 2110 VIA STRETCHER. RESTING WITHOUT COMPLAINT OF PAIN.
--- NOTE | 2019-09-29 14:31 | NUR ---
RECEIVED FROM OUTPATIENT SURGERY VIA STRETCHER. HE IS DROWSY BUT AROUSES AND ANSWERS QUESTIONS EASILY. RESP EVEN WITHOUT LABOR. HE WAS ABLE TO HELP TRANSFER OVER TO BED. MOVES ALL EXT. F/C IS PATENT WITH BLOODY URINE DRAINING. SALINE LOCK IN TOP OF LEFT HAND. HE HAS A PD CATH IN LEFT UPPER ABDOMEN THAT HAS SOME DARK BROWN DRAINAGE NOTED ON OLD DRESSING. IT APPEARS TO BE ERRODING AROUND THE TUBE WITH SOME DARK BLACK SKIN NOTED. NO FOUL SMELL. BBS ARE CLEAR. ORIENT TO ROOM AND USE OF CALL LIGHT TO HIM AND HIS . ABDOMEN IS LARGE SOFT WITH ACTIVE BOWEL SOUNDS NOTED. BED IS LOCKED AND IN LOWEST POSITION.
--- NOTE | 2019-09-29 15:06 | NUR ---
PD cath insertion site looks dark and eroded around edges. Nephro aware. No odor, redness, drainage or edema noted. Wound care will monitor as needed.
--- NOTE | 2019-09-29 15:17 | NUR ---
SPOKE WITH CHARITO THAT HE IS WAKING UP ON AND OFF AND WHEN HE IS AWAKE HE IS COMPLAINING OF PAIN IN ABDOMEN/BLADDER AREA. SHE GAVE ORDER THAT WE CAN ALTERNATE HYDROCODONE 10MG Q 6 HOURS PRN WITH DILAUDID O.5MG Q3 PRN FOR PAIN. I TOLD HER HE WAS STILL DROWSY FROM HIS PROCEDURE SO I WOULD START WITH HYDROCODONE
[2019-09-29 17:27] VITALS: BP 144/88
[2019-09-29 17:54] VITALS: BP 144/80; BMI 26.6
[2019-09-29 19:00] VITALS: BP 153/84
--- NOTE | 2019-09-29 19:22 | NUR ---
PT UP TO RRESTROOM AND BACK TO BED TOLERATED WELL BED LOW AND LOCKED SR X2 CALL LIGHT WITH PT GONZALES IN PLACE AND URINE IN VERY BLOODY AT THIS TIME
--- NOTE | 2019-09-29 22:07 | NUR ---
PT IS EXPERIENCING PAIN DO TO CLOTS BEING LODGED IN GONZALES CAUSING BACK UP PRESSURE AND DRAINAGE AROUND GONZALES I FLUSHED WITH 50 CC SALINE AT THIS TIME
[2019-09-30] VITALS: BP 155/79
[2019-09-30 04:00] VITALS: BP 164/88
--- NOTE | 2019-09-30 04:56 | NUR ---
I have reviewed this patient and I concur with the Shift Assessment completed by the Licensed Practical Nurse today this shift.
[2019-09-30 05:33] LABS: BASOPHILS 0.3 % (0-2); EOSINOPHILS 5.6 % (0-7); HEMATOCRIT 35.8 % (42.0-54.0); HEMOGLOBIN 10.8 g/dL (13.5-17.5); IMMATURE GRANULOCYTES 1.2 % (0-5); MCH 28.6 pg (26.0-34.0); MCHC 30.2 g/dL (31.0-37.0); MEAN PLATELET VOLUME 10.9 fL (7.4-10.4); MONOCYTES 10.6 % (2-11); NEUTROPHILS 70.3 % (40-80); PLATELET COUNT 218 10x3/uL (130-400); RBC 3.77 10x6/uL (4.20-6.10); RDW 13.4 % (11.5-14.5); WBC 9.5 10x3/uL (4.8-10.8)
[2019-09-30 06:05] LABS: ALBUMIN 2.5 g/dL (3.4-5.0); ANION GAP 14.3 mmol/L (8-16); BILIRUBIN - TOTAL 0.32 mg/dL (0.2-1.3); CALCIUM 10.5 mg/dL (8.5-10.1); CARBON DIOXIDE 22.4 mmol/L (21.0-32.0); CREATININE - SERUM 7.5 mg/dL (0.6-1.3); PHOSPHOROUS 7.7 mg/dL (2.5-4.9); POTASSIUM - SERUM 4.7 mmol/L (3.5-5.1); PROTEIN - SERUM 6.2 g/dL (6.4-8.2)
--- NOTE | 2019-09-30 06:55 | NUR ---
REPORT RECEIVED. HE IS ALERT BUT SLEEPY. RESP EVEN WITHOUT LABOR F/C IS PATENT WITH SOME BLOODY URINE NOTED. HE DENIES ANY CURRENT PAIN. DRESSING TO LEFT LOWER ABDOMEN PD SITE IS D/I. CL IN REACH AT BEDSIDE. BED IN LOWEST POSITION AND LOCKED. CAREPLAN REVIEW DONE WITH SAFETY PRECAUTIONS IN PLACE
[2019-09-30 09:51] VITALS: BP 173/78
--- NOTE | 2019-09-30 15:10 | NUR ---
F/C D/C AFTER DEFLATING OF BULB RONAK WELL 900CC OF URINE IN F/C BAG. URINE IN TUBING WAS CLEAR IN COLOR AND DR PACHECO MADE ROUNDS AND PUT IN ORDER TO D/C F/C AND MONITOR HIS VOIDING
--- NOTE | 2019-09-30 15:49 | NUR ---
URINATED 100CC OF PINK TINGED URINE WITH ONE SMALL BLOOD CLOT. HE HAS NO C/O PAIN AT THIS TIME.
[2019-09-30 18:06] VITALS: BP 158/102
[2019-09-30 20:00] VITALS: BP 150/82
[2019-10-01] VITALS: BP 127/71
[2019-10-01 05:27] LABS: BASOPHILS 0.3 % (0-2); EOSINOPHILS 6.8 % (0-7); HEMATOCRIT 35.6 % (42.0-54.0); HEMOGLOBIN 10.9 g/dL (13.5-17.5); MCH 28.8 pg (26.0-34.0); MCHC 30.6 g/dL (31.0-37.0); MCV 93.9 fL (80.0-100.0); MEAN PLATELET VOLUME 10.8 fL (7.4-10.4); MONOCYTES 11.6 % (2-11); NEUTROPHILS 66.3 % (40-80); PLATELET COUNT 209 10x3/uL (130-400); RBC 3.79 10x6/uL (4.20-6.10); RDW 13.5 % (11.5-14.5); WBC 7.8 10x3/uL (4.8-10.8)
[2019-10-01 05:47] LABS: ALBUMIN 2.5 g/dL (3.4-5.0); ANION GAP 15.7 mmol/L (8-16); BILIRUBIN - TOTAL 0.25 mg/dL (0.2-1.3); CALCIUM 10.5 mg/dL (8.5-10.1); CARBON DIOXIDE 19.7 mmol/L (21.0-32.0); CREATININE - SERUM 7.5 mg/dL (0.6-1.3); POTASSIUM - SERUM 4.4 mmol/L (3.5-5.1); PROTEIN - SERUM 6.1 g/dL (6.4-8.2)
--- NOTE | 2019-10-01 07:00 | NUR ---
RECIEVED REPORT. ASSUMED CARE OF PATIENT. BEDSIDE SHIFT REPORT COMPLETE. PATIENT RESTING IN BED WITH EYES CLOSED. EASILY AROUSED. PATIENT AT BEDSIDE. CALL LIGHT WITHIN REACH. PATIENT REPORTS URINATING X 2 THIS AM AND BM X 1. PATIENT ASKING IF HE WILL GO HOME TODAY, THIS [facility] OPERATOR IS UNSURE. DENIES NEEDS. NO DISTRESS.
[2019-10-01 09:39] VITALS: BP 134/63
[2019-10-01 09:54] VITALS: Ht 175.3 cm; Wt 129.4 kg
--- NOTE | 2019-10-01 10:59 | NUR ---
SPOKE WITH RENAL PRACTITIONER, UCHE, AND SHE STATED IT IS OKAY FOR PATIENT TO DISCHARGE TO HOME FROM RENAL STANDPOINT. DR. PACHECO HAS ALREADY PUT NOTE IN AND STATED PATIENT CAN DISCHARGE TO HOME.
--- NOTE | 2019-10-01 11:58 | NUR ---
SITTING TO SIDE OF BED CONSUMING NOON MEAL. NO DISTRESS. CALL LIGHT WITHIN REACH. PATIENT WILL BE DISCHARGING TO HOME SOON. WAITING ON PAPERWORK.
--- NOTE | 2019-10-01 12:28 | NUR ---
20 GAUGE IV REMOVED FROM LEFT HAND. CATHETER TIP INTACT. NO BLEEDING FROM SITE. 2X2 GAUZE APPLIE AND SECURED WITH BANDAID. TOLERATED IV REMOVAL WELL. PATIENT IS DISCHARGING TO HOME.
--- NOTE | 2019-10-01 12:35 | NUR ---
PATIENT AND HIS SPOUSE PROVIDED WITH DISCHARGE INSTRUCTIONS. PATIENTS SPOUSE VERBALIZED UNDERSTANDING OF ALL INSTRUCTIONS PROVIDED. PATIENTS SPOUSE IS CAREGIVER AND KEEPS UP WITH ALL APPOINTMENTS, MEDICATIONS, PROCEDURES, ETC.
--- NOTE | 2019-10-01 12:52 | NUR ---
PATIENT LEFT UNIT VIA WHEELCHAIR AT THIS TIME. PATIENT DISCHARGED TO HOME WITH HIS . NO DISTRESS UPON LEAVING UNIT. PATIENT LEFT UNIT WITH ALL PERSONAL BELONGINGS.
--- NOTE | 2019-10-01 15:42 | MORECARE ---
CASE MANAGEMENT DISCHARGE SUMMARY PATIENT: FRIEDA ANNA JR UNIT: [id number] ADM DATE: 09/30/19 AGE: 64 : 51 SEX: M ROOM/BED: D.2111 AUTHOR: DENIS VELASCO PHYSICIAN: REFERRING PHYSICIAN: VINCENT PACHECO MD DATE OF SERVICE: 10/01/19 Discharge Plan Patient Name: FRIEDA ANNA Facility: [facility]:[place] : 1955 Planned Disposition: Anticipated Discharge Date: Discharge Date: 10/01/2019 Expected LOS: Initial Reviewer: [email or web address] Initial Review Date: 09/30/2019 Generated: 10/01/19 4:42 pm Patient Name: FRIEDA ANNA Page [id number] at 1542 All edits/amendments must be made on the electronic document DICTATION DATE: 10/01/191541 DELIVERY STOCK CLERK: PHILOMENA 10/01/19 154 RPT#: [id number] DC DATE:10/01/19 STATUS: DIS IN [facility] [address] [place] [address] END OF REPORT
== END 2019-10-01 13:00 | disposition home or self-care (01) | DRG 603 ==
LOC: D.OPS 08:05 → D.M2 08:05 → D.OPS 09:45 → D.PAN 09:45 → D.OPS 10:20 → D.M2 14:11
PROVIDERS: Anesthesiology; Internal Medicine; ADMIT Urology; ATTEND Urology
PROC: 0T7D8DZ Dilation of Urethra with Intraluminal Device, Via Natural or Artificial Opening Endoscopic (ICD-10-PCS; principal; 2019-09-29 10:30)
DX: L03.311 Cellulitis of abdominal wall (principal); N13.8 Other obstructive and reflux uropathy; I13.2 Hypertensive heart and chronic kidney disease with heart failure and with stage 5 chronic kidney disease, or end stage renal disease; N18.5 Chronic kidney disease, stage 5; N40.1 Benign prostatic hyperplasia with lower urinary tract symptoms; R33.8 Other retention of urine; I50.9 Heart failure, unspecified; I25.10 Atherosclerotic heart disease of native coronary artery without angina pectoris; Z86.73 Personal history of transient ischemic attack (TIA), and cerebral infarction without residual deficits